=== PATIENT | male | born 1935 | race Caucasian/White ===

== ENCOUNTER 2021-05-03 10:27 | Inpatient (IN) | payer MEDICARE, BC ==
[~2021-05-03] VITALS: Ht 177.8 cm; Wt 81.7 kg
[2021-05-03 10:36] VITALS: BP 159/81
[2021-05-03 11:03] LABS: ABSOLUTE BASOPHILS 0.1 thou/uL (0.0-0.2); ABSOLUTE LYMPHOCYTES 0.4 thou/uL (0.8-5.3); ABSOLUTE MONOCYTES 0.5 thou/uL (0.0-1.2); BASOPHILS 1.1 %; EOSINOPHILS 0.7 %; HEMATOCRIT 24.3 % (42.0-52.0); HEMOGLOBIN 8.1 gm/dL (14.0-18.0); LYMPHOCYTES 7.6 %; MCH 25.6 pg (26.0-34.0); MCHC 33.2 g/dL (28.0-37.0); MCV 76.9 fL (80.0-100.0); MONOCYTES 10.5 %; MPV 7.8 fl. (7.2-11.1); NUCLEATED RBCS 0 /100WBC; PLATELET COUNT* 166 thou/uL (150-400); POLYS 80.1 %; RBC 3.16 mil/uL (4.50-6.00); RDW-CV 20.7 % (10.5-14.5)
[2021-05-03 11:11] LABS: CALCIUM 8.4 mg/dL (8.5-10.1); CREATININE 1.4 mg/dL (0.6-1.3); POTASSIUM 3.5 mmol/L (3.5-5.1)
[2021-05-03 11:16] LABS: TOTAL BILIRUBIN 1.8 mg/dL (<0.1-1.0); TOTAL PROTEIN 7.5 g/dL (6.4-8.2)
[2021-05-03] MEDS ORDERED: ZOCOR 20 MG TAB20 M1 PO (12:18)
[2021-05-03] MEDS ORDERED: JANTOVEN5 MG PO (12:18)
[2021-05-03] MEDS ORDERED: GLIPIZIDE 10 MG10 MG PO (12:18)
[2021-05-03] MEDS ORDERED: COZAAR 50 MG TA50 M1 PO (12:19)
[2021-05-03] MEDS ORDERED: CARVEDILOL12.5 MG PO (12:19)
[2021-05-03 12:34] LABS: APTT 33.9 Seconds (25.0-31.3); INR 1.6; PROTIME 16.7 Seconds (9.20-11.50)
--- NOTE | 2021-05-03 13:37 | EKG ---
[place] [address] ELECTROCARDIOGRAM REPORT Name: HAMZAHUVALDO Beba Room: [place] [address] [facility]#: [id number] Admission: 05/03/21 Attend Phys: Thomas Jarquin Discharge: Date of : 37 Date of Service: 05/03/21 1053 Report #: [id number] THIS REPORT FOR: //name// [facility] ED Test Date: 2021-05-03 Test Time: 10:53:46 Pat Name: UVALDO OGODSON Department: Room: [facility] Gender: M Credit Risk Review Officer: ROXY : 1935 Requested By: Renzo Toure Order Number: [id number] MD: Mynor Sauceda Measurements Intervals [place] Rate: 100 P: RI: QRS: 152 QRSD: 186 T: -18 QT: 477 QTc: 616 Interpretive Statements Atrial fibrillation left axis Ventricular tachycardia, unsustained Right bundle branch block No previous ECG available for comparison Electronically Signed On 05-03-2021 13:37:12 CDT by Mynor Sauceda [email or web address] <ELECTRONICALLY SIGNED> By: Mynor Sauceda MD, FAC 05/03/21 1337 1053 1053 Mynor Sauceda MD, [facility] /EPI
[2021-05-03 13:56] LABS: URINE BILIRUBIN NEGATIVE (Negative); URINE BLOOD NEGATIVE (Negative); URINE CLARITY CLEAR; URINE COLOR YELLOW; URINE GLUCOSE-RANDOM NEGATIVE (Negative); URINE KETONES NEGATIVE (Negative); URINE LEUKOCYTES-REFLEX NEGATIVE (Negative); URINE NITRITE-REFLEX NEGATIVE (Negative); URINE PROTEIN NEGATIVE (Negative)
[2021-05-03 14:47] VITALS: BP 128/76
[2021-05-03 20:03] VITALS: BP 104/53
[2021-05-04 04:00] VITALS: BP 94/53
[2021-05-04 05:36] LABS: CALCIUM 7.6 mg/dL (8.5-10.1); CREATININE 1.4 mg/dL (0.6-1.3); MAGNESIUM 2.1 mg/dL (1.8-2.4); POTASSIUM 3.6 mmol/L (3.5-5.1)
[2021-05-04 07:39] VITALS: BP 97/46
[2021-05-04 11:19] VITALS: BP 89/42
--- NOTE | 2021-05-04 12:52 | 2DMMODE ---
[place] [address] 2 D/M-MODE ECHOCARDIOGRAM Name: HAMZAHUVALDO Beba Room: [address] IN [facility]#: [id number] Admission: 05/03/21 Attend Phys: Thomas Jarquin Discharge: Date of : 37 Date of Service: 05/04/21 1252 Report #: [id number] THIS REPORT FOR: cc: KIMBERLY PAPPAS MD, CHADWICK MD Blick, David R. MD [facility] ~ APPROVED REPORT Study performed: 05/04/2021 10:29:21 EXAM: Comprehensive 2D, Doppler, and color-flow Echocardiogram Patient Location: In-Patient Room #: 103 Status: routine BSA: 2.00 HR: 76 bpm BP: 97/46 mmHg Rhythm: Atrial Fibrillation Other Information Study Quality: Good Indications Atrial Fibrillation Elevated Troponin 2D Dimensions IVSd: 12.49 (7-11mm) LVOT Diam: 20.32 (18-24mm) LVDd: 45.21 mm PWd: 10.72 (7-11mm) Ascending Ao: 24.93 (22-36mm) LVDs: 37.39 (25-40mm) Aortic Root: 32.18 mm Volumes Left Atrial Volume (Systole) LA ESV Index: 77.30 mL/m2 Aortic Valve AoV Peak Himanshu.: 1.31 m/s AO Peak Gr.: 6.84 mmHg LVOT Max P.62 mmHg AO Mean Gr.: 4.45 mmHg LVOT Mean P.77 mmHg LVOT Max V: 0.64 m/s AO V2 VTI: 25.90 cm LVOT Mean V: 0.40 m/s MOHIT (VTI): 1.65 cm2 LVOT V1 VTI: 13.22 [place] [address] 2 D/M-MODE ECHOCARDIOGRAM Name: UVALDO GOODSON Room: [address] IN [facility]#: [id number] Admission: 05/03/21 Attend Phys: Thomas Jarquin Discharge: Date of : 37 Date of Service: 05/04/21 1252 Report #: [id number] Pulmonary Valve PV Peak Himanshu.: 0.67 m/s PV Peak Gr.: 1.81 mmHg Tricuspid Valve RAP Estimate: 15.00 mmHg TR Peak Gr.: 27.19 mmHg RVSP: 42.00 mmHg PA Pressure: 42.00 mmHg Left Ventricle The left ventricle is normal size. Paradoxical septal motion There is normal left ventricular wall thickness. Left ventricular systolic function is borderline. LVEF is 50-55%. This study is not technically sufficient to allow evaluation of the LV diastolic function due to atrial fibrillation. Right Ventricle The right ventricle is normal size. The right ventricular systolic function is normal. Atria Left atrium is severely dilated. Right atrium is severly dilated. Aortic Valve Moderate aortic valve sclerosis. No aortic regurgitation is present. There is no aortic valvular stenosis. Mitral Valve There is mitral annular calcification. The mitral valve is normal in structure. Mild mitral regurgitation. No evidence of mitral valve stenosis. Tricuspid Valve The tricuspid valve is normal in structure. Moderate tricuspid regurgitation. estimated pa pressure 35 mm Hg Pulmonic Valve The pulmonary valve is normal in structure. Trace pulmonic regurgitation. Great Vessels The aortic root is normal in size. IVC is dilated and collapses <50% with inspiration[place] [address] 2 D/M-MODE ECHOCARDIOGRAM Name: HAMZAHUVALDO Beba Room: [address] IN [facility].#: [id number] Admission: 05/03/21 Attend Phys: Thomas Jarquin Discharge: Date of : 37 Date of Service: 05/04/21 1252 Report #: [id number] There is no pericardial effusion. <Conclusion> LVEF is 50-55%. Left atrium is severely dilated. Right atrium is severly dilated. Moderate aortic valve sclerosis. Mild mitral regurgitation. Moderate tricuspid regurgitation. estimated pa pressure 35 mm Hg <ELECTRONICALLY SIGNED> By: Mynor Sauceda MD, [facility] 10/1251 125 51 Mynor Sauceda MD, FACC /INF
== END 2021-05-04 14:45 | disposition left against medical advice (07) | DRG 371 ==
LOC: M.ERS 10:27 → M.ORTHSURG 11:52 → M.TBA-ER 11:52 → M.ORTHSURG 15:20
PROVIDERS: Emergency Medicine Emergency Medical Services; Nurse Practitioner Family; ADMIT Internal Medicine; ATTEND Internal Medicine
DX: A04.9 Bacterial intestinal infection, unspecified (principal); G93.41 Metabolic encephalopathy; I48.20 Chronic atrial fibrillation, unspecified; E11.649 Type 2 diabetes mellitus with hypoglycemia without coma; Z20.822 Contact with and (suspected) exposure to COVID-19; I10 Essential (primary) hypertension; D50.9 Iron deficiency anemia, unspecified; D64.9 Anemia, unspecified; K76.0 Fatty (change of) liver, not elsewhere classified; E78.5 Hyperlipidemia, unspecified; I25.10 Atherosclerotic heart disease of native coronary artery without angina pectoris; I25.5 Ischemic cardiomyopathy; E86.0 Dehydration; I71.4 Abdominal aortic aneurysm, without rupture; I70.1 Atherosclerosis of renal artery; Z83.3 Family history of diabetes mellitus; Z95.1 Presence of aortocoronary bypass graft; Z82.49 Family history of ischemic heart disease and other diseases of the circulatory system; Z23 Encounter for immunization; Z53.29 Procedure and treatment not carried out because of patient's decision for other reasons